=== PATIENT | male | born 1980 | race Asian ===

== ENCOUNTER → 2018-06-06 | Outpatient (CLI) | payer BC ==
[2018-06-06 11:32] LABS: BASOPHILS % 0.7 % (0.0-2.0); EOSINOPHILS % 5.7 % (0.0-5.0); HEMATOCRIT. 40.6 % (42.0-52.0); HEMOGLOBIN. 13.8 g/dL (14.0-18.0); LYMPHOCYTES % 28.4 % (20.0-50.0); MEAN CORPUSCULAR HEMOGLOBIN 30.1 pg (28.0-32.0); MEAN CORPUSCULAR VOLUME 88.9 fL (80.0-94.0); MONOCYTES % 5.1 % (2.0-8.0); NEUTROPHILS % 60.1 % (40.0-76.0); PLATELET 242 x1000/uL (130-400); RED BLOOD CELL COUNT 4.57 mill/uL (4.7-6.1); RED CELL DISTRIBUTION WIDTH 12.4 % (11.6-14.6)
[2018-06-06 11:44] LABS: CHLORIDE 105 mEq/L (98-107)
[2018-06-07 08:23] LABS: VITAMIN D 25-OH 28.3 ng/mL (30.0-100.0)
== END | disposition home or self-care (01) ==
LOC: LAB 10:52
DX: E10.22 Type 1 diabetes mellitus with diabetic chronic kidney disease (principal); N18.1 Chronic kidney disease, stage 1; E21.3 Hyperparathyroidism, unspecified; E21.1 Secondary hyperparathyroidism, not elsewhere classified; N39.0 Urinary tract infection, site not specified; M25.50 Pain in unspecified joint; R31.9 Hematuria, unspecified; R80.3 Bence Jones proteinuria
CPT/HCPCS: 36415; 82306; 82570; 83735; 83970; 84156; 84550

== ENCOUNTER → 2018-09-04 | Outpatient (CLI) | payer BC ==
[2018-09-04 10:42] LABS: EOSINOPHILS % 5.1 % (0.0-5.0); HEMATOCRIT. 41.1 % (42.0-52.0); LYMPHOCYTES % 29.8 % (20.0-50.0); MEAN CORPUSCULAR HEMOGLOBIN 30.4 pg (28.0-32.0); MEAN CORPUSCULAR VOLUME 89.1 fL (80.0-94.0); MEAN PLATELET VOLUME 7.7 fl (7.4-10.4); MONOCYTES % 4.4 % (2.0-8.0); NEUTROPHILS % 59.7 % (40.0-76.0); PLATELET 259 x1000/uL (130-400); RED BLOOD CELL COUNT 4.62 mill/uL (4.7-6.1); RED CELL DISTRIBUTION WIDTH 12.4 % (11.6-14.6)
[2018-09-04 10:53] LABS: PARTIAL THROMBOPLASTIN TIME 26.6 sec (23.4-31.0); PROTHROMBIN TIME 9.9 sec (9.1-11.1)
[2018-09-04 11:26] LABS: CHLORIDE 106 mEq/L (98-107)
[2018-09-04 11:35] LABS: HDL CHOLESTEROL 45 mg/dL (40-59); LDL CHOLESTEROL 135 mg/dL (5-100)
[2018-09-05 09:06] LABS: A/G RATIO 1.1 (0.7-1.7); ALBUMIN 3.9 g/dL (2.9-4.4); ALPHA-1-GLOBULIN 0.2 g/dL (0.0-0.4); ALPHA-2-GLOBULIN 0.6 g/dL (0.4-1.0); BETA GLOBULIN 1.1 g/dL (0.7-1.3); GAMMA GLOBULINS 1.4 g/dL (0.4-1.8); GLOBULIN TOTAL 3.4 g/dL (2.2-3.9); M-SPIKE Not Observed g/dL (Not Observed); TOTAL PROTEIN SERUM 7.3 g/dL (6.0-8.5)
== END | disposition home or self-care (01) ==
LOC: RAD 09:59
DX: Z01.818 Encounter for other preprocedural examination (principal); J32.2 Chronic ethmoidal sinusitis; N02.8 Recurrent and persistent hematuria with other morphologic changes
CPT/HCPCS: 36415; 71046; 80061; 84155; 84165